=== PATIENT | female | born 1965 | race Two or more races ===

== ENCOUNTER → 2018-08-05 13:11 | Outpatient (CLI) | payer BC | END | disposition home or self-care (01) | LOC: D.CT 13:11 | PROVIDERS: ATTEND Family Medicine Adult Medicine | DX: R91.1 Solitary pulmonary nodule (principal) ==

== ENCOUNTER → 2018-09-02 19:19 | Outpatient (CLI) | payer BC | END | disposition home or self-care (01) | LOC: D.MAMMO 19:19 | DX: Z12.31 Encounter for screening mammogram for malignant neoplasm of breast (principal) ==

== ENCOUNTER 2018-10-02 19:00 | Outpatient (CLI) | payer SELFPAY | END 2018-10-02 23:59 | disposition home or self-care (01) | LOC: D.MAMMO 19:00 | PROVIDERS: ATTEND Family Medicine Adult Medicine | DX: R92.8 Other abnormal and inconclusive findings on diagnostic imaging of breast (principal) ==